=== PATIENT | male | born 1950 | race Asian ===

== ENCOUNTER 2016-10-17 10:04 | Outpatient (CLI) | payer BC ==
[2016-10-17 10:30] LABS: PLATELET COUNT 255 K/uL (142-355)
[2016-10-17 11:47] LABS: POTASSIUM 3.8 mmol/L (3.6-5.2); SODIUM 136 mmol/L (136-145)
== END 2016-10-17 19:48 | disposition home or self-care (01) ==
LOC: LABW 10:04
PROVIDERS: Nurse Practitioner
DX: R53.83 Other fatigue (principal); E11.9 Type 2 diabetes mellitus without complications; E78.00 Pure hypercholesterolemia, unspecified; Z12.5 Encounter for screening for malignant neoplasm of prostate
CPT/HCPCS: 36415; 80053; 80061; 82043; 82570; 83036; 84153; 84443; 85027

== ENCOUNTER 2019-06-19 07:47 | Day surgery (SDC) | payer BC ==
[2019-06-19 08:27] LABS: PLATELET COUNT 276 K/uL (142-355)
[2019-06-19 08:46] LABS: POTASSIUM 3.1 mmol/L (3.6-5.2)
== END 2019-06-19 11:26 | disposition home or self-care (01) ==
LOC: OR 07:47
PROVIDERS: Internal Medicine
PROC: 0DJD8ZZ Inspection of Lower Intestinal Tract, Via Natural or Artificial Opening Endoscopic (ICD-10-PCS; principal; 2019-06-19)
DX: K57.30 Diverticulosis of large intestine without perforation or abscess without bleeding (principal); Z12.11 Encounter for screening for malignant neoplasm of colon
CPT/HCPCS: 80053; 83735; 85027; J2001; J2250; J2704

== ENCOUNTER 2020-08-17 10:13 | Outpatient (CLI) | payer BC, OTHER | END 2020-08-17 23:32 | disposition home or self-care (01) | LOC: LAB 10:13 | DX: R53.83 Other fatigue (principal); R05 Cough; Z11.59 Encounter for screening for other viral diseases | CPT/HCPCS: 87635; G2023; U0003 ==

== ENCOUNTER 2022-08-02 10:18 | Outpatient (CLI) | payer OTHER, MEDICARE | END 2022-08-02 21:18 | disposition home or self-care (01) | LOC: RAD 10:18 | PROVIDERS: ATTEND Nurse Practitioner Family | DX: M25.512 Pain in left shoulder (principal); R20.0 Anesthesia of skin; M79.2 Neuralgia and neuritis, unspecified ==